=== PATIENT | female | born 1980 | race Two or more races ===

== ENCOUNTER → 2021-03-30 | Day surgery (SDC) | payer OTHER | END | disposition home or self-care (01) | LOC: AMB-ENDOS 08:26 | PROVIDERS: ATTEND Colon & Rectal Surgery | DX: K62.89 Other specified diseases of anus and rectum (principal); K64.8 Other hemorrhoids; Z12.11 Encounter for screening for malignant neoplasm of colon ==

== ENCOUNTER 2022-05-04 05:45 | Day surgery (SDC) | payer OTHER ==
[~2022-05-04] VITALS: Ht 162.6 cm; Wt 63.5 kg
[~2022-05-04 05:45] MED LIST: LEVO-T100 MCG PO
== END 2022-05-04 14:30 | disposition home or self-care (01) ==
LOC: CIR.AMB 05:45
PROVIDERS: ATTEND Obstetrics & Gynecology Gynecologic Oncology
DX: N80.8 Other endometriosis (principal); N83.291 Other ovarian cyst, right side; N73.6 Female pelvic peritoneal adhesions (postinfective); D36.0 Benign neoplasm of lymph nodes; E03.9 Hypothyroidism, unspecified; Z20.822 Contact with and (suspected) exposure to COVID-19